=== PATIENT | female | born 1975 | race Caucasian/White ===

== ENCOUNTER 2023-10-15 08:45 | Outpatient (RCR) | payer OTHER, SELFPAY | END 2024-02-12 23:59 | disposition home or self-care (01) | PROVIDERS: PCP Physician Assistant Medical; Visit Provider Physician Assistant Medical | DX: M79.2 Neuralgia and neuritis, unspecified (principal); M54.2 Cervicalgia; M26.609 Unspecified temporomandibular joint disorder, unspecified side; R68.84 Jaw pain; M25.511 Pain in right shoulder; S29.012A Strain of muscle and tendon of back wall of thorax, initial encounter; R10.9 Unspecified abdominal pain; M72.2 Plantar fascial fibromatosis; Z74.09 Other reduced mobility; R53.1 Weakness; R26.89 Other abnormalities of gait and mobility; M79.672 Pain in left foot; M79.662 Pain in left lower leg; M62.89 Other specified disorders of muscle; Z51.89 Encounter for other specified aftercare | CPT/HCPCS: 97110; 97112; 97140; 97161 ==

== ENCOUNTER 2023-12-23 07:30 | Outpatient (RCR) | payer OTHER, SELFPAY | END 2024-04-21 23:59 | disposition home or self-care (01) | PROVIDERS: PCP Physician Assistant Medical; Visit Provider Physician Assistant Medical | DX: R68.84 Jaw pain (principal); M54.2 Cervicalgia; Z51.89 Encounter for other specified aftercare | CPT/HCPCS: 97035; 97110; 97140; 97162 ==